=== PATIENT | male | born 1945 | race Caucasian/White ===

== ENCOUNTER → 2016-06-28 | Outpatient (CLI) | payer MEDICARE, OTHER ==
--- NOTE | 2016-06-28 13:07 | US ---
EXAM DESCRIPTION: Extremity,Lower RT Arteries CLINICAL HISTORY: 70 years Male, PVP COMPARISON: None. TECHNIQUE: 2-D grayscale and color arterial duplex Doppler evaluation of the right lower extremity performed. FINDINGS: There is moderate irregular calcified plaque in the common femoral artery to bifurcation. Moderate scattered calcified atherosclerotic disease of the right lower extremity seen. There is normal triphasic to biphasic flow from the common femoral artery to the posterior tibialis artery with monophasic flow in the dorsalis pedis. No elevated velocities are identified to suggest stenosis. No arterial occlusion is seen. There is decreased velocity in the dorsalis pedis. IMPRESSION: Moderate atherosclerotic disease of the right lower extremity seen. Findings suggest at least moderate atherosclerotic disease and vessel narrowing involving the anterior tibialis to dorsalis pedis. Electronically signed by: Carlos Maria MD 06/28/2016 1:06 PM CDT
== END | disposition home or self-care (01) ==
LOC: US 09:55
PROVIDERS: ATTEND Family Medicine
DX: I73.9 Peripheral vascular disease, unspecified (principal); L03.031 Cellulitis of right toe

== ENCOUNTER → 2016-07-07 | Outpatient (CLI) | payer MEDICARE, OTHER | END | disposition home or self-care (01) | LOC: GMAM 10:09 | PROVIDERS: ATTEND Family Medicine | DX: L03.031 Cellulitis of right toe (principal) ==

== ENCOUNTER → 2016-08-03 | Outpatient (CLI) | payer MEDICARE, OTHER | END | disposition home or self-care (01) | LOC: LAB.O 14:36 | PROVIDERS: ATTEND Internal Medicine Interventional Cardiology | DX: I25.10 Atherosclerotic heart disease of native coronary artery without angina pectoris (principal); I73.9 Peripheral vascular disease, unspecified; E11.9 Type 2 diabetes mellitus without complications; E78.2 Mixed hyperlipidemia; I10 Essential (primary) hypertension; Z01.812 Encounter for preprocedural laboratory examination ==

== ENCOUNTER → 2016-08-16 | Outpatient (CLI) | payer MEDICARE, OTHER ==
--- NOTE | 2016-08-17 10:34 | RAD ---
EXAM DESCRIPTION: Toes,Right CLINICAL HISTORY: 70 years, Male, CELLULITIS OF RIGHT GREAT TOE COMPARISON: June 29 FINDINGS: No fracture or dislocation. There is edema about the distal great toe more laterally . Slight cortical thinning of the tuft region of the distal great toe laterally, possibly slightly different than the earlier study. Difficult to completely exclude osteomyelitis here. IMPRESSION: Slight irregularity of the distal right toe laterally could represent osteomyelitis. If clinically indicated, centimeters consider three-phase bone scan or MRI for further characterization Electronically signed by: Gustabo Main MD 08/17/2016 10:33 AM CDT
== END | disposition home or self-care (01) ==
LOC: RAD 15:21
PROVIDERS: ATTEND Surgery
DX: L03.031 Cellulitis of right toe (principal)

== ENCOUNTER 2016-09-13 08:10 | Day surgery (SDC) | payer MEDICARE, OTHER ==
--- NOTE | 2016-09-09 09:49 | RAD ---
EXAM DESCRIPTION: Chest,1 View CLINICAL HISTORY: z01.811 preop COMPARISON: June 28, 2016. Findings: Single portable frontal view of the chest was obtained. Patient is slightly rotated. Cardiomediastinal silhouette shows upper limits of normal heart size. No congestive failure. Calcific atherosclerosis noted of the aortic arch. Lungs are stable in appearance with decreased volume noted of the right lung, possibly secondary to the scoliosis. Lungs are clear without focal consolidative infiltrates. Bilateral costophrenic angles are sharp. No pneumothorax. IMPRESSION: 1. No radiographic evidence for acute cardiopulmonary process. 2. Other findings as above. Electronically signed by: Chun Sánchez MD 09/09/2016 9:49 AM CDT
[~2016-09-13 08:10] MED LIST: BUPIVACAINE 0.5% 30 ML VIAL INJ ONE; LACTATED RINGERS 1,000 ML ONE; LIDOCAINE 1% 50 ML VIAL INJ ONE; MIDAZOLAM INJ 5 MG/5 ML VIAL IV ONE; PROPOFOL 200 MG/20 ML VIAL IV ONE; SODIUM CHL 0.9% 100ML MINI-BAG 100 ML IVPB ONE; ceFAZolin SODIUM 1 GM VIAL ONE
[2016-09-13 11:21] VITALS: O2SAT 100
[2016-09-13] MEDS ORDERED: LIDOCAINE 1% 50 ML VIAL INJ ONE (13:44)
--- NOTE | 2016-09-13 14:57 | OP ---
DATE OF PROCEDURE: 09/13/16 PREOPERATIVE DIAGNOSIS: 1. 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 2. Atherosclerotic peripheral vascular disease status post stent placement. 3. Diabetes mellitus. 4. Hypertension. 5. Status post cerebrovascular accident. POSTOPERATIVE DIAGNOSIS: 1. 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 2. Atherosclerotic peripheral vascular disease status post stent placement. 3. Diabetes mellitus. 4. Hypertension. 5. Status post cerebrovascular accident. SURGICAL PROCEDURE: 1. Amputation, right great toe at the metatarsophalangeal joint. SURGEON: Rene Maurice MD. MEDICAL INFORMATION OFFICER: None. ANESTHESIA: Ankle block and IV sedation by Anesthesia. INDICATION: The patient is a 71-year-old male who has developed dry gangrene of his right great toe. It is distal to the first metatarsophalangeal joint. There is mild erythema proximal to it. He has been on Bactrim. He was brought to the Surgical Suite for amputation after the risks, benefits and alternatives to the procedure were discussed and accepted and the patient was given IV Ancef. FINDINGS: The distal bone that was transected just proximal to the joint appeared to be healthy, however, it was very small on rongeur to smooth it, we entered the joint and this disarticulated it at that point. No purulent drainage was obtained. DESCRIPTION OF PROCEDURE: After the ankle block was performed, the patient was brought to the Surgical Suite and prepped and draped in the usual sterile manner after a surgical time-out. An elliptical incision was fashioned with extension down proximally on the medial aspect, first with a marking pen and then with a sharp knife. Dissection was carried down through the skin using sharp dissection and then electrocautery. When the bone was identified, it was cleaned using periosteal elevator and then transected with the medical transcriber. When this was done, we began to rongeur the proximal bone and eventually, as noted, entered the joint space. We removed the remaining bone and then at this point we irrigated copiously with saline. The joint capsule was then closed with interrupted 3-0 Vicryl sutures over the cartilage. The skin edges were then approximated with interrupted 3-0 Nylon vertical mattress sutures. A sterile dressing was applied, slight pressure dressing. The patient was then taken to the Recovery Room in stable condition. Estimated blood loss was 50 to 100 mL and all sponge, needle and instrument counts were correct. #[id number] [facility]
[2016-09-13 15:23] VITALS: TEMP 99
[2016-09-13 15:24] VITALS: BP 160/74
== END 2016-09-13 15:00 | disposition home or self-care (01) ==
LOC: AMB 08:10
PROVIDERS: ATTEND Surgery
DX: E11.52 Type 2 diabetes mellitus with diabetic peripheral angiopathy with gangrene (principal); I70.269 Atherosclerosis of native arteries of extremities with gangrene, unspecified extremity; I10 Essential (primary) hypertension; M54.16 Radiculopathy, lumbar region; F17.220 Nicotine dependence, chewing tobacco, uncomplicated; E78.2 Mixed hyperlipidemia; R94.31 Abnormal electrocardiogram [ECG] [EKG]; I25.10 Atherosclerotic heart disease of native coronary artery without angina pectoris; Z95.5 Presence of coronary angioplasty implant and graft; Z86.73 Personal history of transient ischemic attack (TIA), and cerebral infarction without residual deficits; Z79.82 Long term (current) use of aspirin; Z79.899 Other long term (current) drug therapy
CPT/HCPCS: 01480; 28820; 36415; 36416; 71010; 80048; 81001; 82948; 85025; 88305; 93005; J0690; J2250; J3490; J7050; J7120

== ENCOUNTER → 2016-09-20 | Outpatient (CLI) | payer MEDICARE, OTHER | END | disposition home or self-care (01) | LOC: LAB.O 15:35 | PROVIDERS: ATTEND Surgery | DX: T87.44 Infection of amputation stump, left lower extremity (principal) ==

== ENCOUNTER 2016-10-06 08:00 | Day surgery (SDC) | payer MEDICARE, OTHER ==
[~2016-10-06 08:00] MED LIST changes: -BUPIVACAINE 0.5% 30 ML VIAL INJ ONE; -LACTATED RINGERS 1,000 ML ONE; -LIDOCAINE 1% 50 ML VIAL INJ ONE; -MIDAZOLAM INJ 5 MG/5 ML VIAL IV ONE; -SODIUM CHL 0.9% 100ML MINI-BAG 100 ML IVPB ONE; -ceFAZolin SODIUM 1 GM VIAL ONE
[2016-10-06] MEDS ORDERED: LIDOCAINE 1% 50 ML VIAL INJ ONE (09:45)
[2016-10-06] MEDS ORDERED: BUPIVACAINE 0.5% 30 ML VIAL INJ ONE (09:46)
[2016-10-06] MEDS ORDERED: LACTATED RINGERS 1,000 ML ONE (11:46)
--- NOTE | 2016-10-06 14:28 | OP ---
DATE OF PROCEDURE: 10/06/16 PREOPERATIVE DIAGNOSIS: 1. Dry gangrene, plantar surface, right foot, status post amputation of right great toe with arterial insufficiency. POSTOPERATIVE DIAGNOSIS: 1. Dry gangrene, plantar surface, right foot, status post amputation of right great toe with arterial insufficiency. PROCEDURE: 1. Debridement of skin, subcutaneous tissue and bone, right foot. SURGEON: Rene Maurice MD. SMOKING TOBACCO PACKING MACHINE HAND: None. ANESTHESIA: Ankle block by Anesthesia. INDICATION: The patient is a 71-year-old male who underwent amputation of the right great toe at the metatarsophalangeal joint for dry gangrene several weeks ago. The wound has failed to heal and then the tissues on the inferior flap, medial aspect, extending for several centimeters have necrosed. He was brought to the Surgical Suite today for debridement of necrotic tissue and bone as needed. FINDINGS: The bone was healthy appearing, but was debrided back to allow for better coverage. The tissues were sharply divided back until there was some bleeding and the tissues appeared viable. No significant purulent drainage was identified and there was no sign of osteomyelitis. PROCEDURE: After the patient was brought to the Surgical Suite and underwent the ankle block, the right foot was prepped and draped in the usual sterile manner. The remaining sutures were removed, which did allow some dehiscence of the skin, then the necrotic tissue on the medial aspect of the inferior flap was sharply dissected along with a small amount on the superior flap. When this was done, the bone was inspected and noted to protrude too much, so it was debrided back with a rongeur taking the cartilage and approximately 3 to 5 mm of bone. When it was smoothed, the wound was irrigated copiously with saline. Sterile wet-to-dry dressing was placed. The patient tolerated the procedure well and was taken back to the Ambulatory Unit in stable condition. Estimated blood loss was less than 25 mL. All sponge, needle and instrument counts were correct. [facility][id number] [facility]
[2016-10-06 14:39] VITALS: BP 173/84; TEMP 96.3; O2SAT 100
== END 2016-10-06 14:30 | disposition home or self-care (01) ==
LOC: AMB 08:00 → EDSTATUS 13:00 → AMB 14:30
PROVIDERS: ATTEND Surgery
DX: E11.52 Type 2 diabetes mellitus with diabetic peripheral angiopathy with gangrene (principal); E78.5 Hyperlipidemia, unspecified; I10 Essential (primary) hypertension; M54.17 Radiculopathy, lumbosacral region; I25.10 Atherosclerotic heart disease of native coronary artery without angina pectoris; F17.220 Nicotine dependence, chewing tobacco, uncomplicated; G47.30 Sleep apnea, unspecified; Z89.411 Acquired absence of right great toe; Z86.73 Personal history of transient ischemic attack (TIA), and cerebral infarction without residual deficits; Z95.5 Presence of coronary angioplasty implant and graft; Z79.02 Long term (current) use of antithrombotics/antiplatelets; Z79.82 Long term (current) use of aspirin; Z79.84 Long term (current) use of oral hypoglycemic drugs; Z79.899 Other long term (current) drug therapy
CPT/HCPCS: 01480; 11044; 36415; 36416; 80048; 81001; 82948; 85025; J3490; J7120